=== PATIENT | female | born 1950 | race Caucasian/White ===

== ENCOUNTER 2018-10-18 20:43 | Inpatient (IN) | payer OTHER ==
[~2018-10-18] VITALS: Ht 162.6 cm; Wt 118.3 kg
--- NOTE | ~2018-10-18 | EKG ---
[place] [address] [facility] [place] [address] ELECTROCARDIOGRAM REPORT Name: ERIN RICHEY Room #: 353-P ADM IN M.R.#: [id number] Admission: 10/19/18 Attend Phys: Emeka Smith MD Discharge: Date of : 52 Report #: [id number] THIS REPORT FOR: //name// [facility] Test Date: 2018-10-19 Test Time: 08:37:40 Pat Name: ERIN RICHEY Department: Room: 353 P Gender: F Back Up Scan Coordinator: SOULEYMANE : 1950 Requested By: Maria M Keen Order Number: [id number] MD: Measurements Intervals [place] Rate: 82 P: 26 [place]: 195 QRS: 25 QRSD: 98 T: -39 QT: 478 QTc: 559 Interpretive Statements Sinus rhythm Supraventricular bigeminy Low voltage, extremity leads Abnormal T, consider ischemia, anterior leads Prolonged QT interval Compared to ECG 10/27/2017 19:31:48 Atrial premature complex(es) now present Low QRS voltage now present T-wave abnormality now present Possible ischemia now present Prolonged QT interval now present Poor R-wave progression no longer present [email or web address] By: 6 6 Epiphany Epiphany, /VICTOR MANUEL
--- NOTE | ~2018-10-18 | EKG ---
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: MCKINLEY : 1950 Requested By: Christian Frances Order Number: [id number] MD: Measurements Intervals [place] Rate: 114 P: 53 [place]: 167 QRS: 29 QRSD: 95 T: -20 QT: 390 QTc: 538 Interpretive Statements Sinus tachycardia Multiform ventricular premature complexes Low voltage, extremity leads Abnormal T, consider ischemia, anterior leads Compared to ECG 10/27/2017 19:31:48 Ventricular premature complex(es) now present Low QRS voltage now present T-wave abnormality now present Possible ischemia now present Sinus rhythm no longer present Poor R-wave progression no longer present [email or web address] By: 52 52 Epiphany Epiphany, /EPI
[~2018-10-18 20:43] MED LIST: ADULT LOW DOSE81 MG PO; ADVAIR 500-501 EACH INH; ADVAIR HFA 230M12 GM INH; ANTACID650 MG PO; ASPIRIN EC81 M1 PO; ASPIRIN81 M2 PO; AUGMENTIN 875875 MG PO; AVELOX 400 MG400 MG PO; AZITHROMYCIN 2250 MG PO; BACTRIM DS TAB1 EAC1 PO; BACTRIM DS TAB1 EACH PO; CARDIZEM CD180 MG PO; CARDIZEM CD240 MG PO; CARTIA PO; CARTIA XT180 M1 PO; CARVEDILOL3.125 MG PO; CIPROFLOXACIN500 M1 PO; CLARITIN10 MG PO; COLACE 100 MG100 MG PO; COLACE100 MG PO; COREG CR20 MG; COUMADIN 3 MG TA3 M1 PO; COUMADIN 3 MG TA3 MG PO; COUMADIN 4 MG TA4 M1 PO; COUMADIN 5 MG TA5 M1 PO; CRESTOR20 MG PO; CRESTOR40 MG PO; DETROL LA4 MG PO; DIFLUCAN150 MG PO; DILTIAZEM ER240 M1 PO; DOXYCYCLINE 10100 MG PO; DUONEB 2.5-0.5 M3 ML IH; DUONEB 2.5-0.5 M3 ML INH; DYAZIDE PO; EUCERIN CREME57 GM TP; FEVERALL650 MG PO; FISH OIL 1,0001 EAC5 PO; FOLBIC; FUROSEMIDE 20 M20 M1 PO; GLUCOTROL10 MG PO; GLUCOTROL5 MG PO; HCTZ PO; HUMALOG100 UNIT/1; HUMALOG100 UNIT/1 SUBQ; HYDROCODON-ACE1 EAC7 PO; KEFLEX500 MG PO; KLOR-CON 10 ER10 MEQ PO; LANTUS SUBQ; LASIX 20 MG TAB20 MG PO; LIPITOR80 MG PO; LISINOPRIL2.5 MG PO; LISINOPRIL40 MG PO; LISINOPRIL5 MG PO; LOMOTIL TABLET1 EACH PO; LOTEMAX5 ML OPHTHALMIC; LOTRISONE CREAM15 GM; MAPAP325 MG PO; METFORMIN 500500 MG PO; NIASPAN 500 MG500 M1 PO; NITROQUICK0.4 MG SL; NITROSTAT0.4 M1 SUBLING; NORCO 5-325 TA1 EACH PO; NOVOLOG100 UNIT/1 SUBQ; POTASSIUM20; PREDNISONE 20 M20 MG PO; PREDNISONE 5 MG5 M1 PO; PROAIR HFA8.5 GM INH; RELAFEN750 MG PO; SYNVISC INJECTION; SYNVISC SQ; TOPROL XL100 MG PO; TOPROL XL25 MG PO; TOPROL XL50 MG PO; TRACLEER PO; TRACLEER125 MG PO; TRESIBA FL100 UNIT/1 SUBQ; TRUJEO PO; VERAMYST10 GM NASAL; VICODIN 5-5001 EACH PO; VICODIN ES 7.51 EACH PO; VITAMIN B-12100 MCG PO; VYTORIN 10-801 EACH PO; ZOFRAN ODT4 MG DISSOLVE; ZOFRAN ODT4 MG PO; ZOLOFT100 MG PO; [UNRECOGNIZED DRUG - CODE] GT; [UNRECOGNIZED DRUG - OTHER] INJECTION
[2018-10-18 21:47] LABS: ABSOLUTE NEUTROPHILS 6.5 thou/uL (1.4-8.2); BASOPHILS 0.6 % (0.0-2.0); EOSINOPHILS 0.8 % (0.0-3.0); HEMATOCRIT 41.6 % (37.0-47.0); HEMOGLOBIN 13.9 gm/dL (12.0-15.0); MCHC 33.3 g/dL (28.0-37.0); MCV 87.1 fL (80.0-100.0); PLATELET COUNT 223 thou/uL (150-400); POLYS 85.6 % (36.0-66.0); RBC 4.78 mil/uL (4.20-5.00); RDW 15.1 % (10.5-14.5); WBC 7.6 thou/uL (4.0-11.0)
[2018-10-18 21:57] LABS: CALCIUM 8.4 mg/dL (8.5-10.1); CREATININE 2.5 mg/dL (0.6-1.0); POTASSIUM 4.2 mmol/L (3.5-5.1)
[2018-10-18 22:01] LABS: PROTIME 10.5 Seconds (9.3-11.4)
[2018-10-18 22:04] LABS: TROPONIN-I 0.06 ng/mL (<0.06)
[2018-10-19 00:31] LABS: HCO3 19.1 mmol/L (22.0-26.0); PCO2 32.9 mmHg (35.0-45.0); PO2 70.6 mmHg (80.0-100.0); pH 7.382 (7.360-7.450); sO2 94.1 % (92.0-98.0)
[2018-10-19 01:11] VITALS: BP 126/75
[2018-10-19] MEDS ORDERED: PANTOPRAZOLE SO40 M1 PO (01:48)
--- NOTE | 2018-10-19 03:06 | NUR ---
PATIENT WAS A NEW ADMISSION TO THE UNIT THIS SHIFT. SHE ARRIVED VIA CART FROM THE ER AND WAS ABLE TO AMBULATE TO BED WITHOUT INCIDENT. PATIENT IS ALERT AND ORIENTED AND WILL BE ABLE TO FULLY PARTICIPATE IN ADMISSION AND CALL APPROPRIATELY FOR REQUESTS. HEPARIN GTT WAS STARTED IN ER WITH NURSE FULLY MONITORING. PATIENT IS CURRENTLY STABLE FROM VITAL SIGNS PERSPECTIVE AND IS HAVING NO TROUBLES BREATHING EVIDENCED BY ASSESSMENT AND SPOT OXYGENATION CHECKS. NURSE TO COMPLETE ADMISSION AND INITIATE CARE PLAN.
[2018-10-19 04:34] VITALS: BP 105/48
--- NOTE | 2018-10-19 05:17 | NUR ---
PATIENT IS EXHIBITING BRADYCARDIA INTO LOW 40'S THIS MORNING. SHE IS ASSYMPTOMATIC. NURSE IS MONITORING.
[2018-10-19 07:46] LABS: CALCIUM 8.6 mg/dL (8.5-10.1); CREATININE 2.3 mg/dL (0.6-1.0); POTASSIUM 3.6 mmol/L (3.5-5.1)
[2018-10-19 07:52] VITALS: BP 130/65
[2018-10-19 07:55] LABS: TROPONIN-I 0.08 ng/mL (<0.06)
--- NOTE | 2018-10-19 11:01 | 2DMMODE ---
[facility] [place] [address] 2 D/M-MODE ECHOCARDIOGRAM Name: ERIN RICHEY Room #: 353-P ADM IN M.R.#: [id number] Admission: 10/19/18 Attend Phys: Emeka Smith MD Discharge: Date of : 52 Date of Service: 10/19/18 [facility] Report #: [id number] THIS REPORT FOR: //name// APPROVED REPORT Study performed: 10/19/2018 09:52:16 EXAM: Comprehensive 2D, Doppler, and color-flow Echocardiogram Patient Location: Bedside Room #: 353 Status: routine BSA: 2.19 HR: 94 bpm BP: 130/65 mmHg Rhythm: NSR,arrhythmia Other Information Study Quality: Adequate Indications Chest pain, pulmonary embolism. Hx: AR, Stents, COPD, HTN, HLP, morbid obesity, PE. 2D Dimensions RVDd: 52.10 mm IVSd: 12.79 (7-11mm) LVOT Diam: 21.35 (18-24mm) LVDd: 46.80 mm PWd: 12.46 (7-11mm) LVDs: 35.57 (25-40mm) Aortic Root: 35.32 mm Volumes Left Atrial Volume (Systole) Single Plane 4CH: 41.13 mL Single Plane 2CH: 50.11 mL LA ESV Index: 22.00 mL/m2 Aortic Valve AoV Peak Blake.: 1.63 m/s AO Peak Gr.: 10.61 mmHg LVOT Max P.83 mmHg LVOT Max V: 0.98 m/s SREE Vmax: 2.15 cm2 Mitral Valve E/A Ratio: 0.7 MV Decel. Time: 224.67 ms [facility] [address] [place] [address] 2 D/M-MODE ECHOCARDIOGRAM Name: ERIN RICHEY Room #: 353-P [facility] IN ..#: [id number] Admission: 10/19/18 Attend Phys: Emeka Smith MD Discharge: Date of : 52 Date of Service: 10/19/18 1100 Report #: [id number] MV E Max Blake.: 0.64 m/s MV A Blake.: 0.96 m/s MV PHT: 65.15 ms IVRT: 87.66 ms Pulmonary Valve PV Peak Blake.: 1.08 m/s PV Peak Gr.: 4.64 mmHg Tricuspid Valve TR Peak Blake.: 4.15 m/s RAP Estimate: 5.00 mmHg TR Peak Gr.: 68.73 mmHg PA Pressure: 74.00 mmHg Left Ventricle The left ventricle is normal size. Flattened septum consistent with right ventricular pressure overload. Mild concentric left ventricular hypertrophy. Left ventricular systolic function is normal. LVEF is 50-55%. Mild diastolic dysfunction is present (impaired relaxation pattern). Right Ventricle Right ventricle is moderately dilated. Right ventricle is moderately hypokinetic. Atria The left atrium size is normal. Right atrium is mild to moderately dilated. Aortic Valve The aortic valve is normal in structure. No aortic regurgitation is present. There is no aortic valvular stenosis. Mitral Valve The mitral valve is normal in structure. There is no mitral valve regurgitation noted. No evidence of mitral valve stenosis. Tricuspid Valve The tricuspid valve is normal in structure. Mild tricuspid regurgitation. Severe pulmonary hypertension with an estimated PAP of 75mmHg. Pulmonic Valve Pulmonic valve is not well visualized. Great Vessels The aortic root is normal in size. Ascending aorta is not well [facility] [address] [place] [address] 2 D/M-MODE ECHOCARDIOGRAM Name: ERIN RICHEY Room #: 353-P ADM IN M.R.#: [id number] Admission: 10/19/18 Attend Phys: Emeka Smith MD Discharge: Date of : 52 Date of Service: 10/19/18 1100 Report #: [id number] visualized. IVC is normal in size and collapses >50% with inspiration. Pericardium Small pericardial effusion. Left pleural effusion. <Conclusion> The left ventricle is normal size. LVEF is 50-55%. Flattened septum consistent with right ventricular pressure overload. Right ventricle is moderately dilated. Right ventricle is moderately hypokinetic. Right atrium is mild to moderately dilated. The aortic valve is normal in structure. The mitral valve is normal in structure. The tricuspid valve is normal in structure. Mild tricuspid regurgitation. Severe pulmonary hypertension with an estimated PAP of 75mmHg. Small pericardial effusion. Left pleural effusion. <ELECTRONICALLY SIGNED> By: Jonathan Acosta MD 10/19/18 1100 1100 99 Jonathan Acosta MD /INF
[2018-10-19 11:13] VITALS: BP 109/71
--- NOTE | 2018-10-19 13:46 | NUR ---
ASSESSMENT: CM REVIEWED CHART AND MET WITH PATIENT AT THE [facility]. PT WAS ADMITTED FOR PULMONARY EMBOLI/HYPOXIA. PT REPORTS LIVING IN A SANDS AT [place] WITH HER . PT REPORTS SHE IS INDEPENDENT WITH ADLS AND AMBULATION BUT DOES TAKE A CANE WITH HER FOR LONG DISTANCES. PT REPORTS ABOUT 3 STEPS TO ENTER HER SANDS WITH HANDRAILS AND NO STEPS SHE HAS TO USE ONCE INSIDE. SHE REPORTS HAVING A BASEMENT BUT DOES NOT GO DOWN THERE. PT REPORTS SHE HAS A GRAB BAR AND SHOWER CHAIR. PT STATES SHE HAS OXYGEN ARRANGED AT HOME NEEDED THROUGH [facility]. PT REPORTS HAVING [facility] IN THE PAST BUT STATES SHE DOES NOT FEEL SHE WILL NEED HH AT DISCHARGE. CM WILL CONTINUE TO FOLLOW TO ASSIST NEEDED.
[2018-10-19 15:36] VITALS: BP 136/67
--- NOTE | 2018-10-19 18:32 | NUR ---
pt is A&OX3, PT is cotinuing o2 4.5-5 L/MIN/NC, PT's vs and o2sat are stable at this time, pt has some SOB with exertion, pt gets up to use BSC, pt is continuing heparin iv drip for PE,pt's aptt 38.0 at 1450pm, pt is running 15units/hr since 1500pm, increase from 13units /hr, pt has 30units/kg bolus at 1500pm, pt does not have s/s of bleeding at this time, pt will be NPO after MN for cardiac stress test tomorrow,pt denies pain and sob at this time.pt has slowly meeting care plan goals.pt will have aptt check at 2100, RN will report to next shift to keep eye on pt and follow orders.
[2018-10-19 19:54] VITALS: BP 137/72
[2018-10-19] MEDS ORDERED: TRELEGY ELLIPT1 EACH INH (22:04)
[2018-10-19] MEDS ORDERED: TRACLEER125 MG PO (22:05)
[2018-10-20 04:49] VITALS: BP 112/69
--- NOTE | 2018-10-20 04:50 | NUR ---
PATIENT IS ADVANCING SLOWLY IN CARE PLAN. VITAL SIGNS STABLE WITH PATIENT HAVING NO COMPLAINTS OF PAIN OR NAUSEA. PATIENT IS FULLY ORIENTED AND ABLE TO PARTICIPATE IN CARE PLAN AND CALL APPROPRIATELY FOR REQUESTS. BREATHING STABLE ON OXYGEN AND BIPAP HS/NOC EVIDENCED BY ASSESSMENT AND SPOT OXYGENATION CHECKS. HEPARIN GTT PER PROTOCOL WITH PATIENTS LAST APTT IN THERAPUTIC RANGE. RE DRAW SET FOR TONIGHT AT 2100. POSITIVE BLOOD CULTURE IDENTIFIED WITH NURSE RECEIVING ORDERS FOR IV ANTIBIOTICS. PATIENT HAS BEEN KEPT NPO FROM MIDNIGHT IN ANTICIPATION OF TODAYS PROCEDURE. SHE HAS BEEN ABLE TO AMBULATE TO RESTROOM MULTIPLE TIMES WITH ASSISTANCE INCIDENT FREE. CONTINUE PLAN OF CARE.
[2018-10-20 07:50] VITALS: BP 131/79
[2018-10-20 11:05] VITALS: BP 125/73
[2018-10-20] MEDS ORDERED: TOUJEO MAX300 UNIT/1 SUBQ (11:31)
[2018-10-20] MEDS ORDERED: DILTIAZEM HCL90 MG PO (11:33)
[2018-10-20] MEDS ORDERED: CARDIZEM CD120 MG PO (11:37)
[2018-10-20 12:00] LABS: CALCIUM 8.8 mg/dL (8.5-10.1); CREATININE 2.1 mg/dL (0.6-1.0); POTASSIUM 4.2 mmol/L (3.5-5.1)
[2018-10-20 15:29] VITALS: BP 107/63
--- NOTE | 2018-10-20 19:20 | NUR ---
PT ON 5L WHICH IS HER BASELINE...DENIES SHORTNESS OF AIR...WEARS CPAP @ HS..
[2018-10-20 19:55] VITALS: BP 115/69
[2018-10-21 04:30] VITALS: BP 131/66
[2018-10-21 05:55] LABS: CALCIUM 8.9 mg/dL (8.5-10.1); CREATININE 2.1 mg/dL (0.6-1.0); MAGNESIUM 1.9 mg/dL (1.8-2.4); TROPONIN-I 0.16 ng/mL (<0.06)
--- NOTE | 2018-10-21 06:13 | NUR ---
PT MAKING PROGRESS TOWARDS GOALS. ON O2 AT 4L PER NC OVERNIGHT. DENIED ANY EPISODES OF SOA. IN CHAIR UNTIL APPROXIMATELY MIDNIGHT. DID WEAR HOME BIPAP WITH 4L OXYGEN BLED IN. CONTINUE TO MONITOR.
[2018-10-21 07:35] VITALS: BP 115/52
[2018-10-21 11:20] VITALS: BP 111/60
--- NOTE | 2018-10-21 12:48 | NUR ---
ON-GOING ASSESSMENT: PT IS HAVING DAY TWO OF HER STRESS TEST TODAY. PT IS SLOWLY PROGRESSING TOWARDS DISCHARGE GOALS. CM WILL CONTINUE TO FOLLOW TO ASSIST NEEDED.
[2018-10-21 15:17] VITALS: BP 114/66
[2018-10-21 19:30] VITALS: BP 115/62
--- NOTE | 2018-10-21 19:32 | NUR ---
ASSUMED PATIENT CARE AT 0700. A/O X4 UP WITH STANDBY ASSISTED. NO SOB ON 2L. STILL ON HEPARIN GTT. PROGRESSING TOWARDS POC GOALS.
[2018-10-22 04:30] VITALS: BP 110/60
--- NOTE | 2018-10-22 05:46 | NUR ---
PT MAKING PROGRESS TOWARDS GOALS. HAS DENIED ANY SOA THROUGHOUT THE NIGHT. HEP GTT IN PROGRESS. ON O2 AT 3L PER NC THROUGHOUT THE NIGHT. NO OVERT SOA WITH TRANSFERING FROM CHAIR TO BED.
[2018-10-22 07:34] VITALS: BP 123/68
[2018-10-22 11:41] VITALS: BP 123/68
--- NOTE | 2018-10-22 12:45 | NUR ---
Assess due to high BMI 44.7. Pt has had recent bariatric gastric sleeve surgery in 01/2018 with successful wt loss ~110 lb. Has made lifestyle changes with diet and exercises usually using treadmill. BG controlled. Low nutrition risk
--- NOTE | 2018-10-22 14:23 | NUR ---
ON-GOING ASSESSMENT: CM REVIEWED CHART AND SPOKE WITH ATTENDING. PT IS BEING SWITHED TO ORAL ANTICOAGULANT AND STILL REQUIRING 3L OXYGEN AND WILL BE HERE A FEW DAYS. CM MET WITH PATIENT WHO REPORTS SHE HAS OXYGEN CONCENTRATOR AT HOME WELL A PORTABLE TANK. PT REPORTS SHE [place] SNOT FEEL SHE NEED HH AT DISCHARGE. CM WILL CONTINUE TO FOLLOW TO ASSIST NEEDED.
--- NOTE | 2018-10-22 16:32 | NUR ---
ASSUMED PATIENT CARE AT 0700. A/O X4. NO SOB. HEPARIN GTT NO CHANGE. PROGRESSING TOWARDS POC GOALS.
[2018-10-22 19:52] VITALS: BP 118/67
[2018-10-23 03:31] VITALS: BP 116/60
--- NOTE | 2018-10-23 05:04 | NUR ---
Pt. up in the recliner chair at beginning of shift. O2 at 3L/NC then BIPAP on while asleep. She slept fair during the night. Heparin gtt. infusing , no signs of bleeding. Up with assist to bathroom to void. Making progress towards care plan goals.
[2018-10-23 11:13] VITALS: BP 118/62
[2018-10-23 16:17] VITALS: BP 110/65
--- NOTE | 2018-10-23 17:43 | NUR ---
pt is A&O X3, PT is o2 2L/MIN/NC,PT has SOB with activies, pt's vs and o2sat are stable , PT's heparin drip has D/C at 1120am,RN has called cariology and pulmonary DR both ok with d/c heparin drip and change to NOAC, pt does not have s/s of bleeding AT THIS TIME. pt has slowly meeting care plan doals.
[2018-10-23 19:08] VITALS: BP 123/71
--- NOTE | 2018-10-24 03:38 | NUR ---
Up in the chair at beginning of shift. Ambulated with assist x1 to bathroom. O2 at 3L/NC then BIPAP on while asleep. No respiratory distress. No active signs of bleeding. Heparin gtt. off per order. She slept fair during the night. Making progress towards care plan goals.
[2018-10-24 04:00] VITALS: BP 108/62
[2018-10-24 07:26] VITALS: BP 108/66
--- NOTE | 2018-10-24 11:16 | NUR ---
pt's assessment has done, pt is A&OX3, pt is on o2 2L/MIN/NC, PT has SOB when pt goes to bathroom with walker, pt's vs, o2sat and bs are stable at this time, pt may have procedure ( cardiac cath possible PCT/STENT )tomorrow , PT understands well, and she will sign this procedure consent today. pt has slowly meeting care plan goals.pt 's heparin drip had stopped at yestoday 1120am, pt does dont have s/s of bleeding at this time.
[2018-10-24 11:18] VITALS: BP 111/59
--- NOTE | 2018-10-24 11:43 | EKG ---
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
[2018-10-24 14:16] LABS: HEMOGLOBIN 12.9 gm/dL (12.0-15.0); MCH 29.1 pg (26.0-34.0); MCHC 33.1 g/dL (28.0-37.0); MCV 87.9 fL (80.0-100.0); RBC 4.43 mil/uL (4.20-5.00)
[2018-10-24 14:30] LABS: PROTIME 10.8 Seconds (9.3-11.4)
[2018-10-24 14:31] LABS: CALCIUM 8.9 mg/dL (8.5-10.1); CREATININE 2.4 mg/dL (0.6-1.0); MAGNESIUM 1.7 mg/dL (1.8-2.4); POTASSIUM 4.6 mmol/L (3.5-5.1)
[2018-10-24 14:32] LABS: APTT 31.3 Seconds (24.5-32.8)
[2018-10-24 16:05] VITALS: BP 108/49
[2018-10-24 16:54] VITALS: BP 110/60
--- NOTE | 2018-10-24 17:40 | NUR ---
pt is continuing Heparin drip at 15ml/hr ( 250ml/[id number]), pt 's vs are stable at this time, pt does not have s/s of bleeding at this time, pt has signed consent for going to [facility] procedure tomorrow.
--- NOTE | 2018-10-24 18:02 | NUR ---
RN has sent massage to to see abnormal Lab results, no new order at this time, but has ordered lab in 10/25 am.
--- NOTE | 2018-10-24 18:54 | NUR ---
RN will report to next shift , pt is going to have aptt check at 2200pm,
[2018-10-24 19:22] VITALS: BP 116/61
[2018-10-25 04:12] VITALS: BP 123/67
[2018-10-25 05:00] LABS: ABSOLUTE NEUTROPHILS 2.5 thou/uL (1.4-8.2); BASOPHILS 1.1 % (0.0-2.0); EOSINOPHILS 3.6 % (0.0-3.0); HEMATOCRIT 36.4 % (37.0-47.0); HEMOGLOBIN 11.9 gm/dL (12.0-15.0); LYMPHOCYTES 31.9 % (24.0-44.0); MCH 28.8 pg (26.0-34.0); MCHC 32.6 g/dL (28.0-37.0); MCV 88.2 fL (80.0-100.0); MONOCYTES 7.3 % (1.0-8.0); PLATELET COUNT 299 thou/uL (150-400); POLYS 56.1 % (36.0-66.0); RBC 4.12 mil/uL (4.20-5.00); RDW 14.7 % (10.5-14.5); WBC 4.5 thou/uL (4.0-11.0)
--- NOTE | 2018-10-25 05:06 | NUR ---
PT MAKING SLOW PROGRESS TOWARDS GOALS. ON O2 AT 3L PER NC THROUGHOUT THE NIGHT. DENIES ANY SOA AT REST OR WHEN AMBULATING TO/FROM THE BATHROOM. NOTED FAINT CRACKLES IN BL BASES.
[2018-10-25 05:15] LABS: ALBUMIN 2.9 g/dL (3.4-5.0); CALCIUM 8.9 mg/dL (8.5-10.1); CREATININE 2.2 mg/dL (0.6-1.0); POTASSIUM 4.1 mmol/L (3.5-5.1); TOTAL BILIRUBIN 0.3 mg/dL (<0.1-1.0); TOTAL PROTEIN 6.3 g/dL (6.4-8.2)
[2018-10-25 07:16] VITALS: BP 118/65
--- NOTE | 2018-10-25 11:59 | NUR ---
ON-GOING ASSESSMENT: CM REVIEWED CHART AND SPOKE WITH ATTENDING. PT IS TO HAVE CARDIAC CATH TODAY. PT REPORTS SHE DOES NOT FEEL SHE NEEDS HH AT DISCHARGE. CM WILL CONTINUE TO FOLLOW TO ASSIST NEEDED.
[2018-10-25 16:03] VITALS: BP 169/63
--- NOTE | 2018-10-25 17:04 | NUR ---
pt is A&OX3, PT is continuing o2 2L/min/nc, pt has SOB with activites, pt's Communications Superintendent procedure has cancel, pt is continuing Heparin drip, pt's heparin dose has changed to 16 units/kg/hr from 14 units /kg/hr at 1400pm, pt will have APTT check at 2000pm. RN has reported to dr about pt 's positive blood culture, new order blood culture today ( done) , PT does not have pain and s/s of bleeding at this time, pt has slowly meeting care plan goals.
[2018-10-25 19:30] VITALS: BP 108/40
[2018-10-26 03:46] LABS: ABSOLUTE NEUTROPHILS 2.6 thou/uL (1.4-8.2); BASOPHILS 0.7 % (0.0-2.0); EOSINOPHILS 3.5 % (0.0-3.0); HEMATOCRIT 34.9 % (37.0-47.0); HEMOGLOBIN 11.6 gm/dL (12.0-15.0); LYMPHOCYTES 29.2 % (24.0-44.0); MCH 29.2 pg (26.0-34.0); MCHC 33.2 g/dL (28.0-37.0); MCV 87.9 fL (80.0-100.0); MONOCYTES 7.7 % (1.0-8.0); PLATELET COUNT 274 thou/uL (150-400); POLYS 58.9 % (36.0-66.0); RBC 3.97 mil/uL (4.20-5.00); RDW 14.9 % (10.5-14.5); WBC 4.4 thou/uL (4.0-11.0)
[2018-10-26 03:56] LABS: ALBUMIN 2.9 g/dL (3.4-5.0); CALCIUM 8.6 mg/dL (8.5-10.1); CREATININE 2.2 mg/dL (0.6-1.0); POTASSIUM 4.1 mmol/L (3.5-5.1); TOTAL BILIRUBIN 0.2 mg/dL (<0.1-1.0); TOTAL PROTEIN 6.2 g/dL (6.4-8.2)
[2018-10-26 04:05] VITALS: BP 108/60
--- NOTE | 2018-10-26 04:38 | NUR ---
ASSUMED CARE AT 1900. PT REPORTS REGULAR RESPIRATORY EFFORT, ABLE TO WALK TO TOILET WITH MINIMAL EXERTIONAL SOB WHILE ON 2L O2, FINE CRACKLES IN THE LEFT LUNG BASE. DENIES ANY PAIN OR NAUSEA. HAS BEEN SR WITH A BBB ON TELE. 1999 APTT DRAW REQUIRED LOWERING HEPARIN DRIP BY 2.4 ML PER PROTOCOL, WITNESSED BY SECOND RN Adrian SPRING. RECHECK OF APTT AT 0300 SHOWED A LEVEL OF 60.9; DRIP MAINTAINED AT CURRENT RATE OF 14.99 UNITS/KG/HR, REDRAW SCHEDULED FOR 10/27/18 AT 0300. PT WENT TO BED AND SWITCHED TO CPAP AROUND MIDNIGHT, CONT PULSE OX IN PLACE. NO OTHER CONCERNS, WILL CONTINUE TO MONITOR.
[2018-10-26 07:46] VITALS: BP 118/56
--- NOTE | 2018-10-26 10:47 | NUR ---
care of pt assumed this am @ ~0700. pt awake, sitting up in the chair this am and off her cpap and on o2 @ 2lt nc. pt denies soa this am. pt up ad lulu w/ a steady, balanced and coordinated gait, pt states she only needs help untangling her iv pump (amongst the telephone cable, call light, etc) on occassion to get up and to the bthrm. pt denies bleeding this am. pt on heparin gtt w/ a theraputic level @ 0300 today. no s/s of bleeding seen by rn this am. pt is hopeful for a dc of the heparin gtt and placement on a po blood thinner and discharge today or tommorrow.
[2018-10-26] MEDS ORDERED: ACETAMINOPHEN325 M1 PO (12:00)
[2018-10-26] MEDS ORDERED: COLACE 100 MG100 MG PO (12:00)
[2018-10-26] MEDS ORDERED: METOPROLOL SUCC25 M1 PO (12:00)
[2018-10-26] MEDS ORDERED: LEVAQUIN 500 M500 M1 PO (12:00)
[2018-10-26] MEDS ORDERED: LEVAQUIN 500 M500 M2 PO (12:02)
[2018-10-26] MEDS ORDERED: ELIQUIS2.5 MG PO (12:02)
[2018-10-26 12:03] VITALS: BP 109/63
[2018-10-26 15:48] VITALS: BP 109/63
== END 2018-10-26 16:15 | disposition home or self-care (01) | DRG 175 ==
LOC: ER 20:43 → 3W 10-19 00:48 → EROBS 10-19 00:48 → 3W 10-19 01:20 → ENTRNSPT 10-26 16:08 → 3W 10-26 16:15
PROVIDERS: Emergency Medicine; Nurse Practitioner; Nurse Practitioner Family; ADMIT Internal Medicine
PROC: 5A09357 Assistance with Respiratory Ventilation, Less than 24 Consecutive Hours, Continuous Positive Airway Pressure (ICD-10-PCS; principal; 2018-10-20)
PROC: 5A09357 Assistance with Respiratory Ventilation, Less than 24 Consecutive Hours, Continuous Positive Airway Pressure (ICD-10-PCS; 2018-10-21)
PROC: 5A09357 Assistance with Respiratory Ventilation, Less than 24 Consecutive Hours, Continuous Positive Airway Pressure (ICD-10-PCS; 2018-10-22)
PROC: 5A09357 Assistance with Respiratory Ventilation, Less than 24 Consecutive Hours, Continuous Positive Airway Pressure (ICD-10-PCS; 2018-10-23)
PROC: 5A09357 Assistance with Respiratory Ventilation, Less than 24 Consecutive Hours, Continuous Positive Airway Pressure (ICD-10-PCS; 2018-10-24)
PROC: 5A09357 Assistance with Respiratory Ventilation, Less than 24 Consecutive Hours, Continuous Positive Airway Pressure (ICD-10-PCS; 2018-10-26)
DX: I26.99 Other pulmonary embolism without acute cor pulmonale (principal); J96.21 Acute and chronic respiratory failure with hypoxia; I82.411 Acute embolism and thrombosis of right femoral vein; Z68.41 Body mass index [BMI] 40.0-44.9, adult; I50.32 Chronic diastolic (congestive) heart failure; I13.0 Hypertensive heart and chronic kidney disease with heart failure and stage 1 through stage 4 chronic kidney disease, or unspecified chronic kidney disease; I82.431 Acute embolism and thrombosis of right popliteal vein; R78.81 Bacteremia; N18.3 Chronic kidney disease, stage 3 (moderate); J44.9 Chronic obstructive pulmonary disease, unspecified; E78.5 Hyperlipidemia, unspecified; E11.22 Type 2 diabetes mellitus with diabetic chronic kidney disease; I25.10 Atherosclerotic heart disease of native coronary artery without angina pectoris; I27.20 Pulmonary hypertension, unspecified; E66.01 Morbid (severe) obesity due to excess calories; J98.4 Other disorders of lung; G47.33 Obstructive sleep apnea (adult) (pediatric); B95.4 Other streptococcus as the cause of diseases classified elsewhere; B95.7 Other staphylococcus as the cause of diseases classified elsewhere; J45.909 Unspecified asthma, uncomplicated; I25.2 Old myocardial infarction; Z91.14 Patient's other noncompliance with medication regimen; Z90.5 Acquired absence of kidney; Z88.8 Allergy status to other drugs, medicaments and biological substances; Z85.53 Personal history of malignant neoplasm of renal pelvis; Z88.1 Allergy status to other antibiotic agents; Z98.891 History of uterine scar from previous surgery; Z79.01 Long term (current) use of anticoagulants; Z95.5 Presence of coronary angioplasty implant and graft; Z98.84 Bariatric surgery status; Z82.3 Family history of stroke; Z83.3 Family history of diabetes mellitus
CPT/HCPCS: 10879